=== PATIENT | female | born 1970 | race Two or more races ===

== ENCOUNTER 2020-11-11 08:20 | Day surgery (SDC) | payer BC, OTHER ==
[2020-11-04 15:35] VITALS: BMI 37.4
[2020-11-11] MEDS ORDERED: SODIUM CHLORIDE 0.9% P/F 10 ML VIAL IJ ONE (10:24)
[2020-11-11] MEDS ORDERED: BUPIVACAINE LIPOSOME/PF (EXPAREL) 266 MG/20 ML VIAL ONE (10:24)
[2020-11-11] MEDS ORDERED: MIDAZOLAM HCL 2 MG/2 ML SINGLE DOSE VIAL ONE ×4 (10:24→14:09)
[2020-11-11] MEDS ORDERED: TRANEXAMIC ACID 1000 MG/10 ML VIAL IVPUSH ONE (11:22)
[2020-11-11] MEDS ORDERED: CEFAZOLIN 2 GM in DEXTROSE 5%-WATER - 50 ML IVPB ONE (11:22)
[2020-11-11] MEDS ORDERED: CELECOXIB 200 MG CAPSULE PO ONE (11:22)
[2020-11-11] MEDS ORDERED: VANCOMYCIN 1 GM in D5W (PRE-DOCKED) 1,000 MG/250 ML IVPB ONE (11:25)
[2020-11-11] MEDS ORDERED: PROPOFOL 20 ML ONE ×3 (11:54→12:26)
[2020-11-11] MEDS ORDERED: SUCCINYLCHOLINE CHLORIDE 200 MG/10 ML SYRINGE ONE (11:54)
[2020-11-11] MEDS ORDERED: PHENYLEPHRINE HCL 10 MG/1 ML SINGLE DOSE VIAL ONE (12:11)
[2020-11-11] MEDS ORDERED: ONDANSETRON 4 MG/2 ML VIAL IVPUSH PRN ×2 (12:33→15:27)
[2020-11-11] MEDS ORDERED: MAG HYDROX/AL HYDROX/SIMETH 30 ML UNIT-DOSE CUP PO PRN (15:27)
[2020-11-11] MEDS ORDERED: MAGNESIUM HYDROX 2400MG/30ML ORAL SUSPENSION 30 ML CUP PO PRN (15:27)
[2020-11-11] MEDS ORDERED: KETOROLAC TROMETHAMINE 30 MG/1 ML VIAL ONE (15:28)
[2020-11-11] MEDS ORDERED: LACTATED RINGERS SOLUTION 1,000 ML IV SCH (15:30)
[2020-11-11] MEDS: oxyCODONE HCL 5 MG TABLET PO PRN ×2 (17:32→20:49)
[2020-11-11] MEDS: CEFAZOLIN 2 GM/D5W 2 GM/50 ML ML IVPB SCH (17:35)
[2020-11-11] MEDS: CELECOXIB 200 MG CAPSULE PO SCH (21:43)
[2020-11-11] MEDS: SENNOSIDES/DOCUSATE COMBO (SENNA PLUS) TABLET (UD) PO SCH (21:43)
[2020-11-11] MEDS: ASPIRIN COATED 81 MG TABLET.EC PO SCH (21:43)
[2020-11-12] MEDS: CEFAZOLIN 2 GM/D5W 2 GM/50 ML ML IVPB SCH ×3 (00:40→12:00)
[2020-11-12] MEDS: oxyCODONE HCL 5 MG TABLET PO PRN ×6 (01:21→20:27)
[2020-11-12 07:55] LABS: HEMATOCRIT 34.8 % (32.4-45.2); HEMOGLOBIN 11.5 GM/dl (10.7-15.3); MCH 29.8 pg (25.7-33.7); MEAN CELL VOLUME 90.3 fl (80-96); MEAN PLT VOLUME 7.9 fl (7.5-11.1); PLATELET COUNT 363 K/MM3 (134-434); RBC 3.86 M/mm3 (3.60-5.2); RDW 11.5 % (11.6-15.6); WHITE BLOOD COUNT 11.2 K/mm3 (4.0-10.8)
[2020-11-12 08:02] LABS: CALCIUM 8.8 mg/dl (8.5-10); CREATININE 0.6 mg/dl (0.55-1.3); POTASSIUM 4.4 mmol/L (3.5-5.1)
[2020-11-12] MEDS: SENNOSIDES/DOCUSATE COMBO (SENNA PLUS) TABLET (UD) PO SCH ×2 (10:18→21:17)
[2020-11-12] MEDS: LOSARTAN POTASSIUM 50 MG TABLET PO SCH (10:19)
[2020-11-12] MEDS: CELECOXIB 200 MG CAPSULE PO SCH ×2 (10:19→21:16)
[2020-11-12] MEDS: ASPIRIN COATED 81 MG TABLET.EC PO SCH ×2 (10:19→21:16)
[2020-11-12] MEDS: PANTOPRAZOLE 40 MG TABLET PO SCH (10:21)
[2020-11-12] MEDS: LACTATED RINGERS SOLUTION 1,000 ML IV SCH (20:02)
[2020-11-13] MEDS: oxyCODONE HCL 5 MG TABLET PO PRN ×4 (04:26→19:18)
[2020-11-13 08:03] LABS: HEMOGLOBIN 11.3 GM/dl (10.7-15.3); MCH 30.6 pg (25.7-33.7); MCHC 34.1 g/dl (32.0-36.0); MEAN CELL VOLUME 89.9 fl (80-96); MEAN PLT VOLUME 8.1 fl (7.5-11.1); PLATELET COUNT 338 K/MM3 (134-434); RBC 3.67 M/mm3 (3.60-5.2); RDW 11.6 % (11.6-15.6); WHITE BLOOD COUNT 10.6 K/mm3 (4.0-10.8)
[2020-11-13] MEDS: LOSARTAN POTASSIUM 50 MG TABLET PO SCH (09:29)
[2020-11-13] MEDS: ASPIRIN COATED 81 MG TABLET.EC PO SCH ×2 (09:29→21:49)
[2020-11-13] MEDS: CELECOXIB 200 MG CAPSULE PO SCH ×2 (09:29→21:48)
[2020-11-13] MEDS: PANTOPRAZOLE 40 MG TABLET PO SCH (09:29)
[2020-11-13] MEDS: SENNOSIDES/DOCUSATE COMBO (SENNA PLUS) TABLET (UD) PO SCH ×2 (09:33→21:49)
[2020-11-14] MEDS: oxyCODONE HCL 5 MG TABLET PO PRN ×2 (06:14→10:17)
[2020-11-14] MEDS: CELECOXIB 200 MG CAPSULE PO SCH (10:16)
[2020-11-14] MEDS: SENNOSIDES/DOCUSATE COMBO (SENNA PLUS) TABLET (UD) PO SCH (10:16)
[2020-11-14] MEDS: PANTOPRAZOLE 40 MG TABLET PO SCH (10:16)
[2020-11-14] MEDS: LOSARTAN POTASSIUM 50 MG TABLET PO SCH (10:16)
[2020-11-14] MEDS: ASPIRIN COATED 81 MG TABLET.EC PO SCH (10:17)
[2020-11-14 15:05] VITALS: TEMP 98.7
[2020-11-14 17:01] VITALS: BP 112/66; PULSE 80
== END 2020-11-14 16:00 | disposition home or self-care (01) ==
LOC: FASUSAT 08:20 → EDSTATUS 08:30 → FM/S 16:32 → FASUSAT 11-14 16:00
PROVIDERS: ATTEND Orthopaedic Surgery Adult Reconstructive Orthopaedic Surgery
PROC: 0SRC0J9 Replacement of Right Knee Joint with Synthetic Substitute, Cemented, Open Approach (ICD-10-PCS; principal; 2020-11-11 12:51)
DX: M17.11 Unilateral primary osteoarthritis, right knee (principal)
CPT/HCPCS: 27447; C1776; 36415; 73560-TC-LT-FY; 80048; 85027; 88305-TC; 88311-TC; 94760; 97010-GP; 97116-GP; 97162-GP

== ENCOUNTER 2021-02-17 08:59 | Day surgery (SDC) | payer BC, OTHER ==
[2021-02-17 11:03] VITALS: BMI 38.7
[2021-02-17] MEDS ORDERED: BUPIVACAINE HCL 50 ML ONE (11:48)
[2021-02-17] MEDS ORDERED: BUPIVACAINE LIPOSOME/PF (EXPAREL) 266 MG/20 ML VIAL ONE (11:50)
[2021-02-17] MEDS ORDERED: MIDAZOLAM HCL 2 MG/2 ML SINGLE DOSE VIAL ONE ×5 (11:50→14:58)
[2021-02-17] MEDS ORDERED: ONDANSETRON 4 MG/2 ML VIAL ONE (12:46)
[2021-02-17] MEDS ORDERED: VANCOMYCIN 1,000 MG VIAL (RESTRICTED TO ID ONLY) ONE (12:46)
[2021-02-17] MEDS ORDERED: DEXAMETHASONE SOD PHOSPHATE 4 MG/1 ML VIAL ONE (12:46)
[2021-02-17] MEDS ORDERED: PROPOFOL 20 ML ONE ×4 (12:46→16:01)
[2021-02-17] MEDS ORDERED: ceFAZolin SODIUM 1 GM VIAL ONE ×2 (12:46→16:21)
[2021-02-17] MEDS ORDERED: TRANEXAMIC ACID 1000 MG/10 ML VIAL ONE ×2 (12:46)
[2021-02-17] MEDS ORDERED: EPHEDRINE SULFATE/0.9% NACL/PF 50 MG/10 ML SYRINGE NR ONE (13:51)
[2021-02-17] MEDS ORDERED: KETAMINE HCL 200 MG/20 ML VIAL ONE (14:31)
[2021-02-17] MEDS ORDERED: GLYCOPYRROLATE 0.2 MG/1 ML VIAL ONE (14:56)
[2021-02-17] MEDS ORDERED: MAGNESIUM HYDROX 2400MG/30ML ORAL SUSPENSION 30 ML CUP PO PRN (16:15)
[2021-02-17] MEDS ORDERED: ONDANSETRON 4 MG/2 ML VIAL IVPUSH PRN ×2 (16:15→16:57)
[2021-02-17] MEDS ORDERED: LACTATED RINGERS SOLUTION 1,000 ML IV SCH ×2 (16:15→17:00)
[2021-02-17] MEDS ORDERED: MAG HYDROX/AL HYDROX/SIMETH 30 ML UNIT-DOSE CUP PO PRN (16:15)
[2021-02-17] MEDS: HYDROmorphone HCl 2 MG/ML VIAL IVPUSH PRN ×3 (16:50→17:30)
[2021-02-17] MEDS ORDERED: HYDROmorphone HCL/PF 1 MG/ML VIAL ONE ×2 (16:50→17:30)
[2021-02-17] MEDS ORDERED: ACETAMINOPHEN 1000 MG/100 ML VIAL (NON FORMULARY) IVPB ONE (16:57)
[2021-02-17] MEDS ORDERED: ACETAMINOPHEN INJECTION 100 ML IVPB ONE (17:30)
[2021-02-17] MEDS ORDERED: KETOROLAC TROMETHAMINE 30 MG/1 ML VIAL ONE (17:35)
[2021-02-17] MEDS: KETOROLAC TROMETHAMINE 30 MG/1 ML VIAL IVPUSH SCH ×2 (17:40→18:06)
[2021-02-17] MEDS: SENNOSIDES/DOCUSATE COMBO (SENNA PLUS) TABLET (UD) PO SCH (21:41)
[2021-02-17] MEDS: CEFAZOLIN 2 GM/D5W 2 GM/50 ML ML IVPB SCH (21:41)
[2021-02-17] MEDS: oxyCODONE HCL 10 MG SUSTAINED ACTING TABLET PO SCH (21:42)
[2021-02-17] MEDS ORDERED: CELECOXIB 200 MG CAPSULE PO SCH (22:00)
[2021-02-18] MEDS: KETOROLAC TROMETHAMINE 30 MG/1 ML VIAL IVPUSH SCH ×2 (00:58→08:17)
[2021-02-18] MEDS: CEFAZOLIN 2 GM/D5W 2 GM/50 ML ML IVPB SCH ×2 (03:27→08:18)
[2021-02-18] MEDS: oxyCODONE HCL 5 MG TABLET PO PRN ×6 (06:03→23:30)
[2021-02-18 08:06] LABS: HEMATOCRIT 34.2 % (32.4-45.2); HEMOGLOBIN 11.2 GM/dl (10.7-15.3); MCH 28.9 pg (25.7-33.7); MCHC 32.7 g/dl (32.0-36.0); MEAN CELL VOLUME 88.6 fl (80-96); MEAN PLT VOLUME 8.1 fl (7.5-11.1); PLATELET COUNT 377 10^3/uL (134-434); RBC 3.87 M/mm3 (3.60-5.2); RDW 11.8 % (11.6-15.6); WHITE BLOOD COUNT 12.9 K/mm3 (4.0-10.8)
[2021-02-18 08:13] LABS: CALCIUM 9.2 mg/dl (8.5-10); CREATININE 0.5 mg/dl (0.55-1.3)
[2021-02-18] MEDS: ASPIRIN 81 MG CHEWABLE TABLETS PO SCH (08:18)
[2021-02-18] MEDS: SENNOSIDES/DOCUSATE COMBO (SENNA PLUS) TABLET (UD) PO SCH ×2 (10:44→21:42)
[2021-02-18] MEDS: LOSARTAN POTASSIUM 50 MG TABLET PO SCH (10:44)
[2021-02-18] MEDS: PANTOPRAZOLE 40 MG TABLET PO SCH (10:44)
[2021-02-18] MEDS: oxyCODONE HCL 10 MG SUSTAINED ACTING TABLET PO SCH ×2 (10:47→21:42)
[2021-02-19] MEDS: oxyCODONE HCL 5 MG TABLET PO PRN ×3 (05:24→14:08)
[2021-02-19 06:36] VITALS: BP 116/56; PULSE 86; TEMP 99.9
[2021-02-19] MEDS ORDERED: ACETAMINOPHEN 1000 MG/100 ML VIAL (NON FORMULARY) IVPB ONE (07:45)
[2021-02-19 08:02] LABS: HEMATOCRIT 28.9 % (32.4-45.2); HEMOGLOBIN 10.1 GM/dl (10.7-15.3); MCH 30.8 pg (25.7-33.7); MCHC 34.8 g/dl (32.0-36.0); MEAN CELL VOLUME 88.4 fl (80-96); MEAN PLT VOLUME 7.9 fl (7.5-11.1); PLATELET COUNT 297 10^3/uL (134-434); RBC 3.27 M/mm3 (3.60-5.2); RDW 11.9 % (11.6-15.6); WHITE BLOOD COUNT 10.1 K/mm3 (4.0-10.8)
[2021-02-19] MEDS: ASPIRIN 81 MG CHEWABLE TABLETS PO SCH (09:19)
[2021-02-19] MEDS: SENNOSIDES/DOCUSATE COMBO (SENNA PLUS) TABLET (UD) PO SCH (09:19)
[2021-02-19] MEDS: LOSARTAN POTASSIUM 50 MG TABLET PO SCH (09:19)
[2021-02-19] MEDS: oxyCODONE HCL 10 MG SUSTAINED ACTING TABLET PO SCH (09:20)
[2021-02-19] MEDS: PANTOPRAZOLE 40 MG TABLET PO SCH (09:20)
== END 2021-02-19 14:45 | disposition home or self-care (01) ==
LOC: FM/S 08:59 → FASUSAT 08:59 → FM/S 17:31 → FASUSAT 02-19 14:45
PROVIDERS: ATTEND Orthopaedic Surgery Orthopaedic Surgery of the Spine
PROC: 0SRC0J9 Replacement of Right Knee Joint with Synthetic Substitute, Cemented, Open Approach (ICD-10-PCS; principal; 2021-02-17 10:30)
DX: M17.11 Unilateral primary osteoarthritis, right knee (principal); I10 Essential (primary) hypertension
CPT/HCPCS: 27447; C1776; 36415; 73560-TC-RT-FY; 80048; 84703; 85027; 88304-TC; 88311-TC; 94760; 97010-GP; 97116-GP; 97161-GP; J0131